=== PATIENT | male | born 1965 | race Caucasian/White ===

== ENCOUNTER 2020-03-14 15:30 | Emergency (ER) | payer MEDICARE, OTHER ==
[2020-03-14] MEDS ORDERED: NORMAL SALINE 1000 ML 1,000 ML IV ONE ×2 (16:06→16:59)
--- NOTE | 2020-03-14 16:13 | ER Document Report ---
ED General - General Chief Complaint: Weakness Stated Complaint: GENERAL WEAKNESS Time Seen by Provider: 03/14/20 15:52 Primary Care Provider: DOMITILA ELIZABETH DO [NO LOCAL MD] - Follow up as needed Notes: HPI: Patient is a 54-year-old male that states he felt a little generalized weakness earlier starting yesterday. Denies any headache, neck pain, chest pain, corey pain, cough, shortness of breath, vomiting, or diarrhea. Patient states he has been taking his insulin but is been out of his metformin for around a week. Patient denies feeling febrile but EMS states that he had a temperature of 100.9 when they arrived. Temperature here 97.9 upon arrival. Blood sugar was greater than 400 by EMS. Patient states that he takes Lantus in the morning 19 units. He states he has not missed this dosage and no recent changes of his medications. He is followed at the [facility]. ROS: See HPI All other review of systems reviewed and otherwise negative Reviewed vital signs and nursing note as charted by RN. PHYSICAL EXAM: CONSTITUTIONAL: Alert and oriented and responds appropriately to questions. Well-appearing; well-nourished HEAD: Normocephalic; atraumatic EYES: PERRL; Conjunctivae clear, sclerae non-icteric ENT: Normal nose; no rhinorrhea; moist mucous membranes; pharynx without lesions noted NECK: Supple without meningismus; non-tender; no cervical lymphadenopathy, no masses CARD: Regular rate and rhythm; no murmurs; symmetric distal pulses RESP: Normal chest excursion without splinting or tachypnea; breath sounds clear and equal bilaterally ABD/GI: Normal bowel sounds; non-distended; soft, non-tender to deep palpation of all 4 quadrants of the abdomen BACK: The back appears normal and is non-tender to palpation EXT: Normal ROM in all joints; non-tender to palpation; no edema SKIN: No acute lesions noted NEURO: CN 2-12 intact; 5/5 bilateral upper and lower extremity strength with sensation intact to light touch PSYCH: The patient's mood and manner are appropriate. Grooming and personal hygiene are appropriate. TRAVEL OUTSIDE OF THE [place] IN LAST 30 DAYS: No - Related Data Allergies/Adverse Reactions: morphine [Morphine] Allergy (Mild, Verified 03/14/20 15:58) bee venom protein (honey bee) Allergy (Verified 03/14/20 15:58) Past Medical History - Social History Smoking Status: Never Smoker Family History: Reviewed & Not Pertinent, CAD, Other - OK: brother and father - Past Medical History Cardiac Medical History: Reports: Hx Heart Attack, Hx Hypercholesterolemia, Hx Hypertension Pulmonary Medical History: Denies: Hx Tuberculosis Neurological Medical History: Reports: Hx Cerebrovascular Accident. Denies: Hx Seizures Endocrine Medical History: Reports: Hx Diabetes Mellitus Type 1, Hx Diabetes Mellitus Type 2 Psychiatric Medical History: Reports: Hx Depression Past Surgical History: Reports: Hx Cardiac Surgery - x4 stents, Hx Orthopedic Surgery - epideral L4L5; bilateral shoulder; r knee arthroscopy, L total knee replace. Denies: Hx Pacemaker - Immunizations Hx Diphtheria, Pertussis, Tetanus Vaccination: Yes - < 10 years? Hx Pneumococcal Vaccination: 08/25/09 Physical Exam - Vital signs Vitals: Resp Pulse Ox 34 H 96 03/14/20 15:33 03/14/20 15:33 Course - Re-evaluation Re-evalutation: 03/14/20 16:13 Given the above history and physical examination, we will perform every hour Accu-Cheks, obtain basic labs and electrolytes, evaluate the anion gap, and reassess. Patient has no obvious rapid breathing, vomiting, or belly pain. I do believe DKA to be unlikely. Patient has been out of his metformin for an extended period of time. Given the elevated temperature we will provide cover testing and send blood cultures. Patient has no signs or symptoms of febrile illness at this time. 03/14/20 17:44 White count as recorded. Still no pain. Vital signs are stable. Glucose is improving with fluids. I have provided a dose of metformin. Patient will be discharged home with strict return precautions with a new prescription for metformin with follow-up with the primary care [place] physician. - Vital Signs Vital signs: Temp Pulse Resp BP Pulse Ox 97.8 F 89 18 118/64 96 03/14/20 15:49 03/14/20 15:54 03/14/20 16:01 03/14/20 16:01 03/14/20 16:01 - Laboratory Result Diagrams: 03/14/20 15:30 03/14/20 15:30 Laboratory results interpreted by me: 03/14/20 03/14/20 03/14/20 15:30 15:30 16:35 RBC 5.76 H MCV 77 L MCH 25.5 L RDW 14.5 H Sodium 131.3 L Chloride 96 L Carbon Dioxide 21 L BUN 6 L Glucose 464 H* POC Glucose 369 H Discharge - Discharge Clinical Impression: Hyperglycemia Condition: Good Disposition: HOME, SELF-CARE Instructions: COVID-19 Guidance for Persons Under Investigation Additional Instructions: Please take the metformin and your insulin as prescribed. Come back immediately for any persistently elevated glucose, return of fevers, shortness of breath, weakness or numbness, persistent vomiting or diarrhea, or any other acute problems. Please make sure that you quarantine yourself until the covid testing has resulted. Prescriptions: Metformin HCl [Glucophage 500 mg Tablet] 500 mg PO BID #60 tablet Referrals: DOMITILA ELIZABETH DO [NO LOCAL MD] - Follow up as needed
[2020-03-14 16:18] LABS: ALBUMIN 4.2 g/dL (3.5-5.0); ALKALINE PHOSPHATASE 61 U/L (38-126); ANION GAP 14 (5-19); ASPARTATE AMINO TRANSFERASE 27 U/L (17-59); BILIRUBIN,DIRECT 0.2 mg/dL (0.0-0.4); BILIRUBIN,TOTAL 1.3 mg/dL (0.2-1.3); BLOOD UREA NITROGEN 6 mg/dL (7-20); CALCIUM 9.3 mg/dL (8.4-10.2); CARBON DIOXIDE 21 mmol/L (22-30); CHLORIDE 96 mmol/L (98-107); POTASSIUM 3.8 mmol/L (3.6-5.0)
[2020-03-14 16:20] LABS: ABSOLUTE BASOPHILS # (AUTO) 0.1 10^3/uL (0.0-0.2); ABSOLUTE LYMPHOCYTES (AUTO) 1.6 10^3/uL (0.5-4.7); ABSOLUTE MONOCYTES (AUTO) 0.5 10^3/uL (0.1-1.4); ABSOLUTE NEUT (AUTO) 4.6 10^3/uL (1.7-8.2); BASOPHILS % (AUTO) 0.8 % (0-2); EOSINOPHILS % (AUTO) 0.4 % (0-6); HEMATOCRIT 44.5 % (37.9-51.0); HEMOGLOBIN 14.7 g/dL (13.5-17.0); LYMPHOCYTES % (AUTO) 23.7 % (13-45); MEAN CORPUSCULAR HEMOGLOBIN 25.5 pg (27.0-33.4); MEAN CORPUSCULAR HGB CONC 33.1 g/dL (32.0-36.0); MEAN CORPUSCULAR VOLUME 77 fl (80-97); MONOCYTES % (AUTO) 7.6 % (3-13); PLATELET COUNT 183 10^3/uL (150-450); RED BLOOD COUNT 5.76 10^6/uL (4.35-5.55); RED CELL DISTRIBUTION WIDTH 14.5 % (11.5-14.0); SEGMENTED NEUTROPHILS % (AUTO) 67.5 % (42-78); TOTAL CELLS COUNTED % (AUTO) 100 %; WHITE BLOOD COUNT 6.9 10^3/uL (4.0-10.5)
[2020-03-14 16:32] LABS: GLUCOSE 464 mg/dL (75-110)
[2020-03-14] MEDS ORDERED: METFORMIN HCL 500 MG TABLET PO ONE (17:46)
[2020-03-14 18:49] VITALS: BP 104/61
--- NOTE | 2020-03-15 09:16 | EKG REPORT ---
SEVERITY:- BORDERLINE ECG - SINUS RHYTHM BORDERLINE T ABNORMALITIES, ANTERIOR LEADS : Confirmed by: Mary Kate Ruiz 15-Mar-2020 09:15:48
== END 2020-03-14 18:50 | disposition home or self-care (01) ==
LOC: ER 15:30
DX: E11.65 Type 2 diabetes mellitus with hyperglycemia (principal); Z79.4 Long term (current) use of insulin; R53.1 Weakness; I10 Essential (primary) hypertension; Z95.5 Presence of coronary angioplasty implant and graft; Z88.6 Allergy status to analgesic agent; Z88.5 Allergy status to narcotic agent; Z91.030 Bee allergy status; Z20.828 Contact with and (suspected) exposure to other viral communicable diseases
CPT/HCPCS: 93005; 99285; 96360; 96361; 36415; 87040; 82962; 85025; 80053; 93010; U0003; A9270; J7030; C9803; 87635